=== PATIENT | female | born 1955 | race Asian ===

== ENCOUNTER 2019-11-22 05:12 | Day surgery (SDC) | payer BC ==
[2019-11-21 15:05] VITALS: BMI 24.7
[2019-11-22] MEDS ORDERED: SUCCINYLCHOLINE CHLORIDE 200 MG/10 ML SYRINGE ONE (07:38)
[2019-11-22] MEDS ORDERED: DEXAMETHASONE SOD PHOSPHATE 4 MG/1 ML VIAL ONE (07:38)
[2019-11-22] MEDS ORDERED: PROPOFOL 20 ML ONE (07:38)
[2019-11-22] MEDS ORDERED: SODIUM CHLORIDE 0.9% P/F 10 ML VIAL IJ ONE (07:38)
[2019-11-22] MEDS ORDERED: LIDOCAINE HCL/PF 2% SDV 5ML VIAL ONE (07:38)
[2019-11-22] MEDS ORDERED: MIDAZOLAM HCL 2 MG/2 ML SINGLE DOSE VIAL ONE (07:38)
[2019-11-22] MEDS ORDERED: ceFAZolin SODIUM 1 GM VIAL ONE (07:38)
[2019-11-22] MEDS ORDERED: KETOROLAC TROMETHAMINE 30 MG/1 ML VIAL ONE (07:38)
[2019-11-22] MEDS ORDERED: DEXMEDETOMIDINE HCL 200 MCG/2 ML IVPB ONE (07:43)
--- NOTE | 2019-11-22 08:11 | HP ---
History & Physical Update - History History: No Change - Physical Physical: No Change - Assessment Assessment: No Change - Plan Plan: No Change
[2019-11-22] MEDS ORDERED: ceFAZolin SODIUM 1 GM VIAL IVPB ONE (08:20)
[2019-11-22] MEDS ORDERED: BUPIVACAINE HCL/PF 0.5% (5 MG/ML) 30 ML VIAL IJ ONE (08:33)
[2019-11-22] MEDS ORDERED: EPHEDRINE SULFATE/0.9% NACL/PF 50 MG/10 ML SYRINGE NR ONE (08:46)
[2019-11-22] MEDS ORDERED: ONDANSETRON 4 MG/2 ML VIAL IVPUSH PRN (09:56)
[2019-11-22] MEDS ORDERED: oxyCODONE HCL 5 MG TABLET PO PRN ×2 (09:56)
[2019-11-22] MEDS ORDERED: LACTATED RINGERS SOLUTION 1,000 ML IV SCH (10:00)
[2019-11-22 11:49] VITALS: BP 136/78; PULSE 81; TEMP 97
--- NOTE | 2019-11-22 22:55 | OP ---
DATE OF OPERATION: 11/22/2019 PROCEDURE: Excision of umbilical cyst. PREOPERATIVE DIAGNOSIS: Umbilical cyst with history of infection. POSTOPERATIVE DIAGNOSIS: Umbilical cyst with history of infection. SURGEON: Kenrick Koehler MD. ANESTHESIA: General by laryngeal mask airway. INDICATION FOR PROCEDURE: This is a 64-year-old female who presents with recurrent infections of the cystic mass with skin of the umbilicus. On physical examination, the patient has a 1-cm cystic mass at the base of the umbilicus just mildly tender. No fascial defect was noted. Patient was advised excision of the cyst and possible umbilical hernia repair, and consent was obtained after discussion of the risks, benefits, and alternatives to the procedure. DESCRIPTION OF PROCEDURE: Patient was brought to the operating room and placed in supine position. General anesthesia by laryngeal mask airway was administered. The abdomen was prepped and draped in the usual sterile fashion. Using 0.5% Marcaine, local anesthesia was administered to the proposed incision site. A 1.5-cm elliptical incision incorporating the cyst was made in a vertical fashion using scalpel blade number 15. This dissection was carried down to the dermis and further dissection using Bovie cautery was done until the cyst together with the ellipse of skin was completely excised down to the subcutaneous layer. The fascia was palpated and was noted to be free of umbilical defect. The wound was irrigated with sterile normal saline until the return was clear. Wound was closed with interrupted Biosyn 4-0 suture for the dermis, and continuous Biosynl 4-0 suture for subcuticular layer. The wound was covered with pressure dressing. Patient was successfully extubated and transferred to the post anesthesia care unit in satisfactory condition. Estimated blood loss was about 2 mL. Wound class clean. Patient was given 1 g Ancef prior to the start of the procedure. KENRICK KOEHLER M.D. [id number] MTDD
--- NOTE | 2019-11-25 17:21 | PATH ---
Surgical Pathology Report Patient Name: GREG FANG [facility]. Rec. #: [id number] /Age/Gender: 1955 (Age: 64) / F Account: [id number] Location: [facility] SURGICAL Taken: 11/22/2019 Received: 11/22/2019 Reported: 11/25/2019 Physicians: Kenrick Koehler M.D. Specimen(s) Received UMBILICAL CYST Clinical History Umbilical cyst Final Diagnosis UMBILICAL CYST, EXCISION: EPIDERMAL INCLUSION CYST WITH SURROUNDING SOFT TISSUE SHOWING CHRONIC INFLAMMATION AND FIBROSIS. Electronically Signed Flash Villarreal M.D. Gross Description Received in formalin labeled "umbilical cyst," is a 2.0 x 1.5 x 1.0 cm ruby-brown portion of soft tissue. Sectioning reveals ruby-poole fibrous tissue. [employer] sections are submitted in one cassette. /11/22/2019 saudi/11/22/2019
== END 2019-11-22 11:48 | disposition home or self-care (01) ==
LOC: JASU-SURG 05:12
PROVIDERS: ATTEND Surgery
PROC: 0HB7XZZ Excision of Abdomen Skin, External Approach (ICD-10-PCS; principal; 2019-11-22 08:00)
DX: L72.0 Epidermal cyst (principal)
CPT/HCPCS: 88304-TC; 94760